=== PATIENT | female | born 1950 | race Caucasian/White ===

== ENCOUNTER → 2016-09-02 | Outpatient (CLI) | payer OTHER ==
[~2016-09-02] MED LIST: ACETAMINOPHEN-1 EAC2; AMARYL1 MG; AMARYL2 MG PO; AMITRIPTYLINE H10 M1; AMITRIPTYLINE H50 M4 PO; AMLODIPINE BESYL5 MG PO; ASPIRIN81 M2 PO; ATORVASTATIN CA40 MG PO; CELEXA20 MG PO; CLOPIDOGREL75 MG PO; FLEXERIL PO; GABAPENTIN100 MG PO; GLUCOPHAGE1000 MG PO; GLUCOPHAGE500 MG PO; HYDROCHLOROTH12.5 M2 PO; JANUVIA100 MG PO; LOSARTAN POTAS100 MG PO; NAPROSYN500 MG PO; NEURONTIN600 MG PO; TRAMADOL 50 MG50 MG PO; ZANAFLEX4 M1 PO
== END ==
LOC: LABMALL 10:02
DX: Z00.00 Encounter for general adult medical examination without abnormal findings (principal); Z85.43 Personal history of malignant neoplasm of ovary

== ENCOUNTER → 2016-09-12 | Outpatient (CLI) | payer OTHER | LOC: RAD 10:06 | DX: M79.671 Pain in right foot (principal) ==

== ENCOUNTER 2016-12-22 22:39 | Emergency (ER) | payer OTHER ==
[~2016-12-22] VITALS: Ht 165.1 cm; Wt 58.1 kg
[2016-12-22] MEDS ORDERED: AMITRIPTYLINE H50 M3 (22:49)
[2016-12-22 23:12] LABS: ABSOLUTE NEUTROPHILS 6.8 thou/uL (1.4-8.2); BASOPHILS 1.5 % (0.0-2.0); EOSINOPHILS 1.9 % (0.0-3.0); HEMOGLOBIN 13.5 gm/dL (12.0-15.0); LYMPHOCYTES 26.8 % (24.0-44.0); MCH 30.3 pg (26.0-34.0); MCHC 34.5 g/dL (28.0-37.0); MCV 87.8 fL (80.0-100.0); MONOCYTES 8.1 % (1.0-8.0); PLATELET COUNT 333 thou/uL (150-400); POLYS 61.7 % (36.0-66.0); RBC 4.45 mil/uL (4.20-5.00); RDW 13.5 % (10.5-14.5); WBC 11.1 thou/uL (4.0-11.0)
[2016-12-22 23:16] LABS: MANUAL DIFF NO
[2016-12-22 23:30] LABS: URINE BILIRUBIN NEGATIVE (Negative); URINE BLOOD NEGATIVE (Negative); URINE COLOR YELLOW; URINE GLUCOSE-RANDOM* NEGATIVE (Negative); URINE KETONES NEGATIVE (Negative); URINE NITRITE NEGATIVE (Negative); URINE PROTEIN (DIPSTICK) NEGATIVE (Negative); URINE SPECIFIC GRAVITY <= 1.005 (1.003-1.035); URINE UROBILINOGEN 0.2 E.U./dl (0.2-1.0)
[2016-12-22 23:57] LABS: CALCIUM 8.8 mg/dL (8.5-10.1); CREATININE 0.6 mg/dL (0.6-1.0); POTASSIUM 3.5 mmol/L (3.5-5.1)
[2016-12-22] MEDS ORDERED: ACETAMINOPHEN-1 EAC1 PO (23:57)
== END 2016-12-23 00:45 | disposition home or self-care (01) ==
LOC: ER 22:39
PROVIDERS: Nurse Practitioner
DX: R10.9 Unspecified abdominal pain (principal); I10 Essential (primary) hypertension; F32.9 Major depressive disorder, single episode, unspecified; E78.00 Pure hypercholesterolemia, unspecified; E11.9 Type 2 diabetes mellitus without complications; F17.210 Nicotine dependence, cigarettes, uncomplicated; Z90.710 Acquired absence of both cervix and uterus; Z86.73 Personal history of transient ischemic attack (TIA), and cerebral infarction without residual deficits; Z98.890 Other specified postprocedural states; Z85.43 Personal history of malignant neoplasm of ovary; Z88.5 Allergy status to narcotic agent

== ENCOUNTER 2017-03-25 18:37 | Emergency (ER) | payer OTHER ==
[~2017-03-25] VITALS: Ht 160 cm; Wt 58.5 kg
[~2017-03-25 18:37] MED LIST changes: +ACETAMINOPHEN-1 EAC1 PO; +AMITRIPTYLINE H50 M3; +MOBIC15 MG PO; +ULTRAM 50MG TAB50 MG PO
[2017-03-25] MEDS ORDERED: IBUPROFEN 800800 M1 PO (19:54)
[2017-03-25 20:19] VITALS: BP 128/82
== END 2017-03-25 20:20 | disposition home or self-care (01) ==
LOC: ER 18:37
DX: S53.491A Other sprain of right elbow, initial encounter (principal); S80.02XA Contusion of left knee, initial encounter; I10 Essential (primary) hypertension; E78.00 Pure hypercholesterolemia, unspecified; F32.9 Major depressive disorder, single episode, unspecified; E11.9 Type 2 diabetes mellitus without complications; F17.210 Nicotine dependence, cigarettes, uncomplicated; Z88.5 Allergy status to narcotic agent; Z90.710 Acquired absence of both cervix and uterus; Z86.73 Personal history of transient ischemic attack (TIA), and cerebral infarction without residual deficits; Z85.43 Personal history of malignant neoplasm of ovary; Z98.890 Other specified postprocedural states; Z90.89 Acquired absence of other organs; W01.0XXA Fall on same level from slipping, tripping and stumbling without subsequent striking against object, initial encounter; Y93.89 Activity, other specified; Y92.89 Other specified places as the place of occurrence of the external cause; Y99.8 Other external cause status

== ENCOUNTER → 2017-05-23 | Outpatient (CLI) | payer OTHER ==
[~2017-05-23] MED LIST changes: +AUGMENTIN 500-1 EACH PO; +IBUPROFEN 800800 M1 PO; +PLAVIX 75 MG TA75 M1 PO
== END ==
LOC: RAD 10:38
DX: M79.672 Pain in left foot (principal); R10.2 Pelvic and perineal pain; Z85.43 Personal history of malignant neoplasm of ovary

== ENCOUNTER → 2017-08-02 | Outpatient (CLI) | payer OTHER ==
[~2017-08-02] MED LIST changes: -AUGMENTIN 500-1 EACH PO; -PLAVIX 75 MG TA75 M1 PO
[2017-08-02 15:30] LABS: CREATININE 0.8 mg/dL (0.6-1.0)
== END ==
LOC: CAT 15:01
PROVIDERS: Nurse Practitioner
DX: K57.30 Diverticulosis of large intestine without perforation or abscess without bleeding (principal); J98.4 Other disorders of lung; E27.8 Other specified disorders of adrenal gland; N28.1 Cyst of kidney, acquired; I10 Essential (primary) hypertension; E88.89 Other specified metabolic disorders

== ENCOUNTER 2017-10-29 22:06 | Emergency (ER) | payer OTHER ==
[~2017-10-29] VITALS: Ht 165.1 cm; Wt 58.1 kg
[2017-10-29] MEDS ORDERED: PLAVIX 75 MG TA75 M1 PO (22:20)
[2017-10-29] MEDS ORDERED: AUGMENTIN 500-1 EACH PO (22:58)
[2017-10-29] MEDS ORDERED: ACETAMINOPHEN-1 EAC1 PO (22:58)
== END 2017-10-29 23:50 | disposition home or self-care (01) ==
LOC: ER 22:06
DX: S61.551A Open bite of right wrist, initial encounter (principal); L08.9 Local infection of the skin and subcutaneous tissue, unspecified; I10 Essential (primary) hypertension; F32.9 Major depressive disorder, single episode, unspecified; E78.00 Pure hypercholesterolemia, unspecified; E11.9 Type 2 diabetes mellitus without complications; Z85.43 Personal history of malignant neoplasm of ovary; Z98.890 Other specified postprocedural states; F17.210 Nicotine dependence, cigarettes, uncomplicated; Z88.1 Allergy status to other antibiotic agents; Z88.5 Allergy status to narcotic agent; W55.01XA Bitten by cat, initial encounter; Y93.89 Activity, other specified; Y92.89 Other specified places as the place of occurrence of the external cause; Y99.8 Other external cause status

== ENCOUNTER 2018-09-15 16:06 | Emergency (ER) | payer OTHER ==
[~2018-09-15] VITALS: Ht 162.6 cm; Wt 62.6 kg
[~2018-09-15 16:06] MED LIST changes: +AUGMENTIN 500-1 EACH PO; +PLAVIX 75 MG TA75 M1 PO
[2018-09-15] MEDS ORDERED: IBUPROFEN 600600 M1 PO (17:02)
[2018-09-15] MEDS ORDERED: ACETAMINOPHEN-1 EAC1 PO (17:02)
[2018-09-15 17:54] VITALS: BP 155/81
== END 2018-09-15 17:55 | disposition home or self-care (01) ==
LOC: ER 16:06
DX: S82.831A Other fracture of upper and lower end of right fibula, initial encounter for closed fracture (principal); F17.210 Nicotine dependence, cigarettes, uncomplicated; I10 Essential (primary) hypertension; F32.9 Major depressive disorder, single episode, unspecified; E78.00 Pure hypercholesterolemia, unspecified; E11.9 Type 2 diabetes mellitus without complications; Z90.710 Acquired absence of both cervix and uterus; Z88.6 Allergy status to analgesic agent; Z88.8 Allergy status to other drugs, medicaments and biological substances; Z85.41 Personal history of malignant neoplasm of cervix uteri; Z98.890 Other specified postprocedural states; Z90.89 Acquired absence of other organs; Z86.73 Personal history of transient ischemic attack (TIA), and cerebral infarction without residual deficits; W18.40XA Slipping, tripping and stumbling without falling, unspecified, initial encounter; Y93.89 Activity, other specified; Y92.481 Parking lot as the place of occurrence of the external cause; Y99.8 Other external cause status

== ENCOUNTER 2018-11-02 11:13 | Emergency (ER) | payer OTHER ==
[~2018-11-02] VITALS: Ht 165.1 cm; Wt 56.7 kg
[~2018-11-02 11:13] MED LIST changes: +IBUPROFEN 600600 M1 PO
[2018-11-02 11:24] VITALS: BP 146/74
[2018-11-02] MEDS ORDERED: MOBIC7.5 MG PO (12:43)
== END 2018-11-02 12:45 | disposition home or self-care (01) ==
LOC: ER 11:13
DX: S93.401A Sprain of unspecified ligament of right ankle, initial encounter (principal); I10 Essential (primary) hypertension; E78.00 Pure hypercholesterolemia, unspecified; E11.9 Type 2 diabetes mellitus without complications; F32.9 Major depressive disorder, single episode, unspecified; F17.210 Nicotine dependence, cigarettes, uncomplicated; Z90.710 Acquired absence of both cervix and uterus; Z90.89 Acquired absence of other organs; Z86.73 Personal history of transient ischemic attack (TIA), and cerebral infarction without residual deficits; Z85.43 Personal history of malignant neoplasm of ovary; Z98.890 Other specified postprocedural states; Z88.6 Allergy status to analgesic agent; Z88.5 Allergy status to narcotic agent; X58.XXXA Exposure to other specified factors, initial encounter; Y92.89 Other specified places as the place of occurrence of the external cause; Y93.89 Activity, other specified; Y99.8 Other external cause status

== ENCOUNTER → 2019-03-07 | Outpatient (CLI) | payer OTHER ==
[~2019-03-07] MED LIST changes: +MOBIC7.5 MG PO
== END ==
LOC: RAD 12:31
DX: R07.81 Pleurodynia (principal); R53.83 Other fatigue

== ENCOUNTER 2019-05-10 17:15 | Emergency (ER) | payer OTHER ==
[~2019-05-10] VITALS: Ht 165.1 cm; Wt 56.7 kg
[2019-05-10 17:16] VITALS: BP 197/98
[2019-05-10] MEDS ORDERED: MUCINEX1200 MG PO (18:12)
[2019-05-10] MEDS ORDERED: ALBUTEROL2.5 MG/31 INH (18:12)
[2019-05-10] MEDS ORDERED: PREDNISONE 20 M20 MG PO (18:12)
[2019-05-10] MEDS ORDERED: TESSALON PERLE100 MG PO (18:12)
== END 2019-05-10 18:19 | disposition home or self-care (01) ==
LOC: ER 17:15
DX: J40 Bronchitis, not specified as acute or chronic (principal); I10 Essential (primary) hypertension; F32.9 Major depressive disorder, single episode, unspecified; E78.00 Pure hypercholesterolemia, unspecified; E11.9 Type 2 diabetes mellitus without complications; F17.210 Nicotine dependence, cigarettes, uncomplicated; Z90.710 Acquired absence of both cervix and uterus; Z86.73 Personal history of transient ischemic attack (TIA), and cerebral infarction without residual deficits; Z85.43 Personal history of malignant neoplasm of ovary; Z88.6 Allergy status to analgesic agent; Z88.5 Allergy status to narcotic agent

== ENCOUNTER → 2019-07-31 | Outpatient (CLI) | payer OTHER ==
[~2019-07-31] MED LIST changes: +ALBUTEROL2.5 MG/31 INH; +MUCINEX1200 MG PO; +PREDNISONE 20 M20 MG PO; +TESSALON PERLE100 MG PO
== END ==
LOC: RAD 13:22
DX: M19.071 Primary osteoarthritis, right ankle and foot (principal); M77.31 Calcaneal spur, right foot

== ENCOUNTER → 2019-09-03 | Outpatient (CLI) | payer OTHER ==
[~2019-09-03] MED LIST changes: +BENICAR40 MG PO; +NORVASC5 MG PO
== END ==
LOC: SJCVCIMAG 09:24
PROVIDERS: ATTEND Internal Medicine Cardiovascular Disease
DX: R00.1 Bradycardia, unspecified (principal); E04.2 Nontoxic multinodular goiter; I10 Essential (primary) hypertension; E78.5 Hyperlipidemia, unspecified; E11.9 Type 2 diabetes mellitus without complications; E78.00 Pure hypercholesterolemia, unspecified; F17.210 Nicotine dependence, cigarettes, uncomplicated; G45.9 Transient cerebral ischemic attack, unspecified; M16.0 Bilateral primary osteoarthritis of hip; Z79.4 Long term (current) use of insulin; Z79.899 Other long term (current) drug therapy; Z79.84 Long term (current) use of oral hypoglycemic drugs; Z82.49 Family history of ischemic heart disease and other diseases of the circulatory system; Z88.8 Allergy status to other drugs, medicaments and biological substances

== ENCOUNTER 2019-09-12 06:48 | Observation (INO) | payer OTHER ==
[~2019-09-12] VITALS: Ht 165.1 cm; Wt 55.0 kg
[2019-09-12] VITALS (18 sets, daily range): BP systolic 120–193; BP diastolic 33–127
[~2019-09-12 06:48] MED LIST changes: -BENICAR40 MG PO; -NORVASC5 MG PO
--- NOTE | 2019-09-12 11:24 | CATHLAB ---
[facility] [place] [address] INVASIVE PROCEDURE REPORT Name: MONIKA CHAN Room #: 210-P [facility] M.R.#: [id number] Admission: 09/12/19 Attend Phys: Varun Ross MD Discharge: Date of : 54 Report #: [id number] THIS REPORT FOR: cc: Cisco Hooker James A. DO Park, Jin S. MD ~ APPROVED REPORT Study performed: 09/12/2019 08:08:37 Patient Details Patient Status: Out-Patient Room #: The patient is a 68 year-old female Event Personnel Varun Ross Match Maker, Alanna Torres RN RN, Santosh Bhardwaj RTR Trey Kramer Sherra RTAdriel Monitor Procedures Performed Art Access - R femoral artery* Left Heart Cath w/or w/o Coronaries [id number] [facility] w/wo Plasty Single CIRC 684398 Hemostasis w/ Mynx 55060 Initial Mod Sed Same Phys/QHP Gr5y 476941 38104 Mod Sed Same Phys/QHP Ea 245847 Indication Dyspnea, Positive stress test Risk Factors Hypercholesterolemia, Hypertension, Diabetes Tobacco History () Procedure Narrative The Right Groin^ was infiltrated with 1% Lidocaine subcutaneous anesthesia. A PINNACLE 4FR Sheath #[id number] sheath was inserted into the RFA^. Coronary angiography was performed using coronary diagnostic catheters. The right coronary system was accessed and visualized with a JR4 catheter. The left coronary system was accessed and visualized with a JL4 catheter. The left ventricle was accessed and visualized with a JR4 catheter. Pre-demployment femoral angiogram was performed . Closure device was deployed with a 6 Fr MYNXGRIP 6/7F #[id number]. The patient tolerated the procedure well and there were no complications associated with the procedure. There was no hematoma. [facility] [place] [address] INVASIVE PROCEDURE REPORT Name: MONIKA CHAN Room #: 210-P [facility] IN .R.#: [id number] Admission: 09/12/19 Attend Phys: Varun Ross MD Discharge: Date of : 54 Report #: [id number] Intraoperative Conscious Sedation Sedation start time: 818 Case end Time: 913 Fentanyl 50 mcg Versed 1.5 mg Fluoro Time: 10.50 minutes Dose: DAP 7235.00 cGycm2 2091 mGy Contrast Type and Amount: Omnipaque 195 ml Coronary Angiography The patient's coronary anatomy is left dominant. Diagnostic Cath Left Main The left main artery is a large-caliber vessel, with no flow-limiting lesions. LAD The LAD is a moderate-sized caliber vessel, traversing the anterior wall and wrapping around the apex. There is minimal plaquing in the midsegment. Diagonal 1 There is mild to moderate diffuse disease in the proximal segment, 30 to 40%. Circumflex The left circumflex artery is a dominant vessel. There is a severe stenosis in the proximal segment, 80%. OM1 This is a moderate-sized caliber vessel, divides into 2 branches. There is mild disease at the ostium, 20%. OM2 This is a small caliber vessel, with no flow-limiting lesions. L PDA This is a moderate-sized caliber vessel, with no flow-limiting lesions. Right Coronary This is a small, nondominant vessel with minimal disease. Left Ventriculography Left Ventriculography was not performed. Ejection Fraction was 55-60% based off patient's Nuclear Cardiac Stress Test. An LVEDP was measured and there is no gradient across the outflow tract. Hemodynamics The aortic pressure is 164/65 mmHg with a mean of 94 mmHg. The left ventricular pressure is 178/15 mmHg with a mean of mmHg. The left ventricular end diastolic pressure is 22 mmHg. PCI Technique Lesion Percutaneous coronary intervention was performed on the proximal circumflex artery segment. The lesion stenosis prior to intervention was 80% with CIARA 3 flow. A VISTA 6FR XB 3.5 #248127 Guide Catheter was used to engage the ostium. A Luge Wire .014 x 182CM #[id number] Interventional Guidewire was used to cross the lesion. [facility] [address] [place] [address] INVASIVE PROCEDURE REPORT Name: MONIKA CHAN Room #: 210-P [facility] IN .R.#: [id number] Admission: 09/12/19 Attend Phys: Varun Ross MD Discharge: Date of : 54 Report #: [id number] BALLOON DILATION A Balloon catheter Euphora RX 2.25 x 10 #[id number] was inserted and inflated up to 8.00atm for 8seconds. Additional Inflation: 8.00atm for 6seconds. Additional Inflation: 8.00atm for 6seconds. STENT DEPLOYMENT A drug-eluting stent RESOLUTE FAIZAN RX 2.5 X 12 #[id number] was inserted and inflated up to 12.00atm for 16seconds. POST STENT DEPLOYMENT BALLOON DILATION A Balloon catheter TREK NC RX 2.5 X 8 #[id number] was inserted and inflated up to 16.00atm for 18seconds. Final angiography reveals 0 % stenosis with CIARA 3 flow. Conclusion 1. Successful insertion of a drug-eluting stent into the proximal segment of a dominant left circumflex artery. 2. There is mild to moderate disease in the first diagonal artery and OM1. 3. Normal LV systolic function. 4. Recommend dual antiplatelet therapy and aggressive risk factor management. <ELECTRONICALLY SIGNED> By: Varun Ross MD 09/12/19 1123 22 22 Varun Ross MD /INF
--- NOTE | 2019-09-12 20:20 | NUR ---
ASSUMMED PT CARE AT APPROXIMATELY 1000. PT A&O X4. ASSESSMENT CHARTED. FALL PRECAUTIONS IN PLACE. PT DENIES HAVING CHEST PAIN. PT DENIES HAVING SOB. PT STATED SHE HAD A HEADACHE. PT RECEIVED ANALGESICS. PT STATED ANALGESICS HELPED RELIEVE PAIN. BEDREST COMPLETE. PT AMBULATES STEADY/INDEPENDENT. R GROIN C/D/I, NO HEMATOMA. INFORMED DR. FERRELL OF PT'S ELEVATED BP. RECEIVED NEW ORDERS. NEW ORDERS IMPLEMENTED. PT BP DECREASED. INFORMED DR. MEDELLIN OF PT'S BP AND HIGH BLOOD SUGAR. NEW ORDERS RECIEVED. INFORMED FENDER FINISHER RN OF NEW ORDERS. RN STATED UNDERSTANDING AND DENIED HAVING FURTHER QUESTIONS. VITAL SIGNS STABLE. BLOOD SUGAR STABLE. PT COMFORTABLE. PT DENIES HAVING FURTHER CONCERNS.
--- NOTE | 2019-09-13 00:21 | NUR ---
PT ALERT AND ORIENTED, S/P CARDIAC CATH. OFF BEDREST BEFORE NOC SHIFT. WALKING AROUND. VSS. C/O SORENESS IN THE RIGHT GROING, OTHERWISE C/D/I. INDEPENDENT WITH ADLS. NO OTHER CONCERNS AT THIS TIME. NO SOB, CHEST PAIN, OR NAUSEA. ANTICIPATE TO DC TOMORROW. WILL FOLLOW POC
[2019-09-13 04:53] VITALS: BP 149/56
[2019-09-13 05:27] LABS: HEMATOCRIT 40.2 % (37.0-47.0); HEMOGLOBIN 13.4 gm/dL (12.0-15.0); MCH 30.8 pg (26.0-34.0); MCHC 33.4 g/dL (28.0-37.0); MCV 92.2 fL (80.0-100.0); RBC 4.36 mil/uL (4.20-5.00); RDW 13.8 % (10.5-14.5); WBC 10.6 thou/uL (4.0-11.0)
[2019-09-13 05:47] LABS: CALCIUM 8.6 mg/dL (8.5-10.1); CREATININE 0.8 mg/dL (0.6-1.0); POTASSIUM 3.9 mmol/L (3.5-5.1); TOTAL BILIRUBIN 0.1 mg/dL (0.2-1.0); TOTAL PROTEIN 5.9 g/dL (6.4-8.2)
[2019-09-13 07:14] VITALS: BP 162/79
--- NOTE | 2019-09-13 07:48 | EKG ---
[facility] [place] [address] ELECTROCARDIOGRAM REPORT Name: MONIKA CHAN Room #: 210- [facility] M.R.#: [id number] Admission: 09/12/19 Attend Phys: Varun Ross MD Discharge: Date of : 54 Report #: [id number] THIS REPORT FOR: cc: Cisco Hooker James A. DO Lundgren, Craig H. MD [facility] ~ THIS REPORT FOR: //name// [facility] Test Date: 2019-09-12 Test Time: 10:01:17 Pat Name: MONIKA CHAN Department: Room: 210 Gender: F Fruit Culler: Rodolfo ULRICH : 1950 Requested By: Varun Ross Order Number: [id number] MD: Jeyson Marmolejo Measurements Intervals [place] Rate: 68 P: 58 SC: 170 QRS: 24 QRSD: 84 T: 47 QT: 437 QTc: 465 Interpretive Statements Sinus rhythm Nonspecific ST segment abnormality Compared to ECG 02/26/2016 20:01:19 No significant changes Electronically Signed On 09-13-2019 7:47:10 CDT by Jeyson Marmolejo [email or web address] <ELECTRONICALLY SIGNED> By: Jeyson Marmolejo MD, [facility] 09/13/19 0747 1001 1001 Jeyson Marmolejo MD, [facility] /EPI
[2019-09-13 07:50] VITALS: BP 162/79
[2019-09-13] MEDS ORDERED: NORVASC5 MG PO (08:05)
[2019-09-13] MEDS ORDERED: BENICAR40 MG PO (08:05)
[2019-09-13 09:50] VITALS: BP 162/79
--- NOTE | 2019-09-13 10:46 | NUR ---
PT CARE ASSUMED AT 0700, PT ALERT AND ORENTED X4, DENIES CHEST PAIN, NAUSEA AND VOMITING. PT IS ON ROOM AIR AND NO SIGNS OF DISTRESS NOTED. ASSESSMENT AND VITALS COMPLETED. CALL LIGHT AND TABLE WITHIN REACH. 1000 DISCHARGE ORDERS IN, NEW MEDICATION EXPLAIN AND EDUCATION COMPLETED WITH PAPER WORK GIVEN TO PT. DISCHARGE EDUCTION AND INSTRUCTION GIVEN TO PT.
[2019-09-13 11:16] VITALS: BP 146/69
--- NOTE | 2019-09-13 12:19 | NUR ---
1200 PT DISCHARGE, TAKEN DOWN TO CAR VIA WHEELCHAIR. ALL PT BELONGINGS WITH PT.
--- NOTE | 2019-09-14 11:47 | EKG ---
[facility] [place] [address] ELECTROCARDIOGRAM REPORT Name: MONIKA CHAN Room #: 210-[facility] M.R.#: [id number] Admission: 09/12/19 Attend Phys: Varun Ross MD Discharge: 09/13/19 Date of : 54 Report #: [id number] THIS REPORT FOR: cc: Cisco Hooker James A. DO Couchonnal, Luis F. MD ~ THIS REPORT FOR: //name// [facility] Test Date: 2019-09-13 Test Time: 07:31:24 Pat Name: MONIKA CHAN Department: Room: 210 Gender: F Planishing Hammer Operator: Adriel HERNANDEZ : 1950 Requested By: Varun Ross Order Number: [id number] MD: Albert Kong Measurements Intervals [place] Rate: 57 P: 58 DE: 160 QRS: 27 QRSD: 82 T: 56 QT: 470 QTc: 458 Interpretive Statements Sinus rhythm Consider left atrial enlargement Probable anteroseptal infarct, old Compared to ECG 02/26/2016 20:01:19 Myocardial infarct finding now present Electronically Signed On 09-14-2019 11:46:56 CDT by Albert Kong [email or web address] <ELECTRONICALLY SIGNED> By: Albert Kong MD 09/14/19 1146 0 0 Albert Kong MD /EPI
== END 2019-09-13 12:02 | disposition home or self-care (01) ==
LOC: CATH 06:48 → 2N 09:54 → CATH 11:38 → 2N 09-13 12:02
PROVIDERS: ADMIT Internal Medicine Cardiovascular Disease; ATTEND Internal Medicine Cardiovascular Disease
DX: I25.10 Atherosclerotic heart disease of native coronary artery without angina pectoris (principal); I10 Essential (primary) hypertension; E78.5 Hyperlipidemia, unspecified; E11.9 Type 2 diabetes mellitus without complications; Z86.73 Personal history of transient ischemic attack (TIA), and cerebral infarction without residual deficits; F17.200 Nicotine dependence, unspecified, uncomplicated

== ENCOUNTER → 2019-09-23 | Outpatient (CLI) | payer OTHER ==
[~2019-09-23] MED LIST changes: +BENICAR40 MG PO; +NORVASC5 MG PO
[2019-09-23 14:18] LABS: HEMATOCRIT 41.7 % (37.0-47.0); HEMOGLOBIN 14.2 gm/dL (12.0-15.0); MCV 91.2 fL (80.0-100.0); RBC 4.58 mil/uL (4.20-5.00); RDW 13.6 % (10.5-14.5); WBC 12.6 thou/uL (4.0-11.0)
[2019-09-23 14:56] LABS: ALBUMIN 3.7 g/dL (3.4-5.0); CALCIUM 9.8 mg/dL (8.5-10.1); POTASSIUM 4.2 mmol/L (3.5-5.1); TOTAL BILIRUBIN 0.3 mg/dL (0.2-1.0); TOTAL PROTEIN 6.7 g/dL (6.4-8.2)
== END ==
LOC: LABMALL 13:27
PROVIDERS: ATTEND Family Medicine
DX: Z08 Encounter for follow-up examination after completed treatment for malignant neoplasm (principal); C56.9 Malignant neoplasm of unspecified ovary; Z72.0 Tobacco use

== ENCOUNTER → 2019-10-08 | Outpatient (CLI) | payer OTHER | LOC: MRI 09:47 | PROVIDERS: ATTEND Orthopaedic Surgery Sports Medicine | DX: M76.9 Unspecified enthesopathy, lower limb, excluding foot (principal); M79.89 Other specified soft tissue disorders ==

== ENCOUNTER 2020-02-02 06:13 | Emergency (ER) | payer OTHER ==
[~2020-02-02] VITALS: Ht 152.4 cm; Wt 54.4 kg
[2020-02-02 08:09] VITALS: BP 174/75
== END 2020-02-02 08:10 | disposition home or self-care (01) ==
LOC: ER 06:13
DX: S63.501A Unspecified sprain of right wrist, initial encounter (principal); S09.90XA Unspecified injury of head, initial encounter; I10 Essential (primary) hypertension; E11.9 Type 2 diabetes mellitus without complications; E78.5 Hyperlipidemia, unspecified; F17.210 Nicotine dependence, cigarettes, uncomplicated; Z90.710 Acquired absence of both cervix and uterus; Z90.89 Acquired absence of other organs; Z79.899 Other long term (current) drug therapy; Z79.01 Long term (current) use of anticoagulants; Z88.5 Allergy status to narcotic agent; Y04.0XXA Assault by unarmed brawl or fight, initial encounter; Y93.89 Activity, other specified; Y92.89 Other specified places as the place of occurrence of the external cause; Y99.8 Other external cause status

== ENCOUNTER → 2020-02-27 | Outpatient (CLI) | payer OTHER | LOC: LAB 14:22 | PROVIDERS: ATTEND Family Medicine | DX: R05 Cough (principal); U07.1 COVID-19; R06.02 Shortness of breath; R09.89 Other specified symptoms and signs involving the circulatory and respiratory systems ==

== ENCOUNTER → 2020-03-30 | Outpatient (CLI) | payer OTHER | LOC: LAB 12:27 | DX: Z08 Encounter for follow-up examination after completed treatment for malignant neoplasm (principal); C56.9 Malignant neoplasm of unspecified ovary; Z72.0 Tobacco use ==

== ENCOUNTER → 2020-04-02 | Outpatient (CLI) | payer OTHER ==
[2020-04-02 12:30] LABS: ABSOLUTE NEUTROPHILS 5.7 thou/uL (1.4-8.2); EOSINOPHILS 1.9 % (0.0-3.0); HEMATOCRIT 40.8 % (37.0-47.0); HEMOGLOBIN 13.7 gm/dL (12.0-15.0); LYMPHOCYTES 21.3 % (24.0-44.0); MCH 30.5 pg (26.0-34.0); MCHC 33.7 g/dL (28.0-37.0); MCV 90.5 fL (80.0-100.0); MONOCYTES 5.9 % (1.0-8.0); PLATELET COUNT 330 thou/uL (150-400); POLYS 69.9 % (36.0-66.0); WBC 8.2 thou/uL (4.0-11.0)
[2020-04-02 12:54] LABS: ALBUMIN 3.5 g/dL (3.4-5.0); BUN 9 mg/dL (7-18); CALCIUM 9.3 mg/dL (8.5-10.1); CHOLESTEROL 184 mg/dL (<200); CO2 26 mmol/L (21-32); CREATININE 0.8 mg/dL (0.6-1.0); GLUCOSE 178 mg/dL (74-106); HDL CHOLESTEROL 76 mg/dL (>40); LDL CHOLESTEROL 83 mg/dL (<100); SGOT 16 U/L (15-37); SGPT 34 U/L (30-65); TC:HDL 2.4 Ratio (Not establshd); TOTAL BILIRUBIN 0.3 mg/dL (0.2-1.0); TOTAL PROTEIN 6.8 g/dL (6.4-8.2); TRIGLYCERIDE 125 mg/dL (<150); VLDL 25 mg/dL (<40)
[2020-04-02 13:00] LABS: ANION GAP 9 mmol/L (7-16); CHLORIDE 105 mmol/L (98-107); POTASSIUM 4.1 mmol/L (3.5-5.1); SODIUM 140 mmol/L (136-145)
[2020-04-03 00:06] LABS: GLYCOHEMOGLOBIN (HGB A1C) 7.2 % (4.8-5.6)
== END ==
LOC: LAB 11:27
PROVIDERS: ATTEND Family Medicine
DX: Z00.00 Encounter for general adult medical examination without abnormal findings (principal)

== ENCOUNTER → 2020-04-13 | Outpatient (CLI) | payer OTHER | LOC: SJCVCIMAG 04-08 11:28 | PROVIDERS: ATTEND Internal Medicine Cardiovascular Disease | DX: I25.10 Atherosclerotic heart disease of native coronary artery without angina pectoris (principal); I10 Essential (primary) hypertension; E78.5 Hyperlipidemia, unspecified; E11.9 Type 2 diabetes mellitus without complications; F17.200 Nicotine dependence, unspecified, uncomplicated ==

== ENCOUNTER → 2020-04-27 | Outpatient (CLI) | payer OTHER | LOC: MRI 12:09 | PROVIDERS: ATTEND Family Medicine | DX: I67.82 Cerebral ischemia (principal); R51.9 Headache, unspecified; M25.531 Pain in right wrist ==

== ENCOUNTER → 2020-05-08 | Outpatient (CLI) | payer OTHER | LOC: LAB 08:01 | PROVIDERS: ATTEND Family Medicine | DX: R06.02 Shortness of breath (principal); R05 Cough; Z20.822 Contact with and (suspected) exposure to COVID-19 ==

== ENCOUNTER 2020-06-18 09:20 | Emergency (ER) | payer OTHER ==
[~2020-06-18] VITALS: Ht 165.1 cm; Wt 57.6 kg
[2020-06-18] MEDS ORDERED: APAP W/CODEINE1 TA2 PO (11:45)
[2020-06-18 11:59] VITALS: BP 141/73
== END 2020-06-18 12:01 | disposition home or self-care (01) ==
LOC: ER 09:20
DX: S97.82XA Crushing injury of left foot, initial encounter (principal); I10 Essential (primary) hypertension; E11.9 Type 2 diabetes mellitus without complications; F17.210 Nicotine dependence, cigarettes, uncomplicated; E78.5 Hyperlipidemia, unspecified; Z90.710 Acquired absence of both cervix and uterus; Z90.89 Acquired absence of other organs; Z79.899 Other long term (current) drug therapy; Z79.01 Long term (current) use of anticoagulants; Z88.5 Allergy status to narcotic agent; W20.8XXA Other cause of strike by thrown, projected or falling object, initial encounter; Y93.89 Activity, other specified; Y92.89 Other specified places as the place of occurrence of the external cause; Y99.0 Civilian activity done for income or pay

== ENCOUNTER 2020-08-24 13:57 | Emergency (ER) | payer OTHER ==
[~2020-08-24] VITALS: Ht 165.1 cm; Wt 56.7 kg
[~2020-08-24 13:57] MED LIST changes: +APAP W/CODEINE1 TA2 PO
[2020-08-24 14:17] VITALS: BP 132/84
== END 2020-08-24 15:54 | disposition home or self-care (01) ==
LOC: ER 13:57
DX: J06.9 Acute upper respiratory infection, unspecified (principal); Z20.822 Contact with and (suspected) exposure to COVID-19; R19.7 Diarrhea, unspecified; I10 Essential (primary) hypertension; E11.9 Type 2 diabetes mellitus without complications; F32.9 Major depressive disorder, single episode, unspecified; E78.00 Pure hypercholesterolemia, unspecified; F17.210 Nicotine dependence, cigarettes, uncomplicated; Z86.73 Personal history of transient ischemic attack (TIA), and cerebral infarction without residual deficits; Z98.890 Other specified postprocedural states; Z90.89 Acquired absence of other organs; Z85.43 Personal history of malignant neoplasm of ovary; Z79.899 Other long term (current) drug therapy; Z88.6 Allergy status to analgesic agent

== ENCOUNTER 2020-10-16 12:05 | Emergency (ER) | payer OTHER ==
[~2020-10-16] VITALS: Ht 165.1 cm; Wt 58.5 kg
[2020-10-16 13:39] LABS: HEMATOCRIT 39.7 % (37.0-47.0); HEMOGLOBIN 13.6 gm/dL (12.0-15.0); MCH 30.6 pg (26.0-34.0); MCHC 34.1 g/dL (28.0-37.0); MCV 89.7 fL (80.0-100.0); RBC 4.43 mil/uL (4.20-5.00); RDW 13.6 % (10.5-14.5); WBC 7.6 thou/uL (4.0-11.0)
[2020-10-16 13:45] LABS: ANION GAP 6 mmol/L (7-16); BUN 12 mg/dL (7-18); CALCIUM 9.5 mg/dL (8.5-10.1); CHLORIDE 106 mmol/L (98-107); CO2 29 mmol/L (21-32); GLUCOSE 147 mg/dL (74-106); SODIUM 141 mmol/L (136-145)
[2020-10-16 13:56] LABS: ALBUMIN 3.6 g/dL (3.4-5.0); SGOT 12 U/L (15-37); SGPT 32 U/L (14-59); TOTAL BILIRUBIN 0.2 mg/dL (0.2-1.0); TROPONIN-I <0.06 ng/mL (<0.06)
[2020-10-16] MEDS ORDERED: METHOCARBAMOL500 M2 PO (14:30)
[2020-10-16 14:36] VITALS: BP 155/67
--- NOTE | 2020-10-17 10:42 | EKG ---
[place] [address] [facility] [place] [address] ELECTROCARDIOGRAM REPORT Name: MONIKA CHAN [id number] Admission: 10/16/20 Attend Phys: Discharge: 10/16/20 Date of : 54 Report #: [id number] [facility] ED Test Date: 2020-10-16 Test Time: 13:04:27 Pat Name: MONIKA CHAN Department: Room: Gender: F Soldering Machine Tender: : 1950 Requested By: Juana Becerra Order Number: [id number] MD: Jeyson Marmolejo Measurements Intervals [place] Rate: 61 P: 52 ME: 152 QRS: 15 QRSD: 92 T: 68 QT: 453 QTc: 457 Interpretive Statements Sinus rhythm No significant abnormality Compared to ECG 09/13/2019 07:31:24 Myocardial infarct finding no longer present Electronically Signed On 10-17-2020 10:41:51 CDT by Jeyson Marmolejo [email or web address] <ELECTRONICALLY SIGNED> By: Jeyson Marmolejo MD, [facility] 10/17/20 1041 1304 1304 Jeyson Marmolejo MD, FACC /EPI
== END 2020-10-16 14:30 | disposition home or self-care (01) ==
LOC: ER 12:05
PROVIDERS: Nurse Practitioner Family
DX: S29.011A Strain of muscle and tendon of front wall of thorax, initial encounter (principal); I10 Essential (primary) hypertension; E78.00 Pure hypercholesterolemia, unspecified; E11.9 Type 2 diabetes mellitus without complications; F17.210 Nicotine dependence, cigarettes, uncomplicated; Z88.5 Allergy status to narcotic agent; Z98.890 Other specified postprocedural states; Z86.73 Personal history of transient ischemic attack (TIA), and cerebral infarction without residual deficits; Z90.89 Acquired absence of other organs; Z90.710 Acquired absence of both cervix and uterus; Z85.43 Personal history of malignant neoplasm of ovary; Z86.16 Personal history of COVID-19; X50.0XXA Overexertion from strenuous movement or load, initial encounter; Y93.89 Activity, other specified; Y92.89 Other specified places as the place of occurrence of the external cause; Y99.8 Other external cause status

== ENCOUNTER → 2021-01-14 | Outpatient (CLI) | payer OTHER ==
[~2021-01-14] MED LIST changes: +METHOCARBAMOL500 M2 PO
[2021-01-14 12:29] LABS: ABSOLUTE NEUTROPHILS 7.6 thou/uL (1.4-8.2); BASOPHILS 0.8 % (0.0-2.0); EOSINOPHILS 1.6 % (0.0-3.0); HEMATOCRIT 44.1 % (37.0-47.0); HEMOGLOBIN 15.2 gm/dL (12.0-15.0); LYMPHOCYTES 20.2 % (24.0-44.0); MCH 30.4 pg (26.0-34.0); MCHC 34.4 g/dL (28.0-37.0); MCV 88.6 fL (80.0-100.0); MONOCYTES 5.5 % (1.0-8.0); POLYS 71.9 % (36.0-66.0); RBC 4.98 mil/uL (4.20-5.00); RDW 13.4 % (10.5-14.5); WBC 10.6 thou/uL (4.0-11.0)
[2021-01-14 12:52] LABS: % SATURATION 38 % (20-39); IRON 128 ug/dL (50-170); TIBC 341 ug/dL (250-450)
[2021-01-14 12:57] LABS: ALBUMIN 3.9 g/dL (3.4-5.0); ANION GAP 8 mmol/L (7-16); BUN 12 mg/dL (7-18); CALCIUM 9.5 mg/dL (8.5-10.1); CHLORIDE 104 mmol/L (98-107); CHOLESTEROL 213 mg/dL (<200); CO2 27 mmol/L (21-32); CREATININE 0.9 mg/dL (0.6-1.0); GLUCOSE 174 mg/dL (74-106); HDL CHOLESTEROL 78 mg/dL (>40); LDL CHOLESTEROL 113 mg/dL (<100); POTASSIUM 4.4 mmol/L (3.5-5.1); SGOT 12 U/L (15-37); SGPT 27 U/L (30-65); SODIUM 139 mmol/L (136-145); TC:HDL 2.7 Ratio (Not establshd); TOTAL BILIRUBIN 0.3 mg/dL (0.2-1.0); TOTAL PROTEIN 7.6 g/dL (6.4-8.2); TRIGLYCERIDE 111 mg/dL (<150); VLDL 22 mg/dL (<40)
[2021-01-14 14:03] LABS: PLATELET COUNT 350 thou/uL (150-400)
[2021-01-15 01:06] LABS: GLYCOHEMOGLOBIN (HGB A1C) 8.3 % (4.8-5.6)
== END ==
LOC: LAB 11:51
PROVIDERS: ATTEND Nurse Practitioner
DX: E11.65 Type 2 diabetes mellitus with hyperglycemia (principal); E61.1 Iron deficiency; E53.8 Deficiency of other specified B group vitamins

== ENCOUNTER → 2021-02-25 | Outpatient (CLI) | payer OTHER | LOC: SJCVCIMAG 08:21 | PROVIDERS: ATTEND Internal Medicine Cardiovascular Disease | DX: I08.1 Rheumatic disorders of both mitral and tricuspid valves (principal); I25.10 Atherosclerotic heart disease of native coronary artery without angina pectoris ==

== ENCOUNTER 2021-03-23 20:52 | Emergency (ER) | payer OTHER ==
[~2021-03-23] VITALS: Ht 165.1 cm; Wt 57.6 kg
[2021-03-23 21:34] LABS: URINE BILIRUBIN NEGATIVE (Negative); URINE BLOOD NEGATIVE (Negative); URINE CLARITY CLEAR; URINE COLOR YELLOW; URINE GLUCOSE-RANDOM* NEGATIVE (Negative); URINE KETONES NEGATIVE (Negative); URINE LEUKOCYTES-REFLEX NEGATIVE (Negative); URINE NITRITE-REFLEX NEGATIVE (Negative); URINE PROTEIN (DIPSTICK) NEGATIVE (Negative); URINE UROBILINOGEN 0.2 E.U./dl (0.2-1.0)
[2021-03-23] MEDS ORDERED: ROSUVASTATIN CA40 MG PO (22:07)
[2021-03-23] MEDS ORDERED: GLUCOPHAGE XR750 MG PO (22:09)
[2021-03-23 22:13] LABS: ABSOLUTE NEUTROPHILS 7.6 thou/uL (1.4-8.2); EOSINOPHILS 1.3 % (0.0-3.0); HEMATOCRIT 41.9 % (37.0-47.0); HEMOGLOBIN 14.1 gm/dL (12.0-15.0); LYMPHOCYTES 15.3 % (24.0-44.0); MCH 30.2 pg (26.0-34.0); MCHC 33.7 g/dL (28.0-37.0); MCV 89.7 fL (80.0-100.0); MONOCYTES 5.8 % (1.0-8.0); PLATELET COUNT 358 thou/uL (150-400); POLYS 76.6 % (36.0-66.0); RBC 4.67 mil/uL (4.20-5.00); RDW 13.8 % (10.5-14.5); WBC 9.9 thou/uL (4.0-11.0)
[2021-03-23 22:14] LABS: CALCIUM 9.6 mg/dL (8.5-10.1); CREATININE 0.9 mg/dL (0.6-1.0); POTASSIUM 4.7 mmol/L (3.5-5.1)
[2021-03-23 22:25] LABS: ALBUMIN 3.4 g/dL (3.4-5.0); MAGNESIUM 1.7 mg/dL (1.8-2.4); TOTAL BILIRUBIN 0.2 mg/dL (0.2-1.0); TOTAL PROTEIN 6.8 g/dL (6.4-8.2)
[2021-03-24 03:28] VITALS: BP 158/76
--- NOTE | 2021-03-24 08:23 | EKG ---
[address] [address] ELECTROCARDIOGRAM REPORT Name: MONIKA CHAN Room #: DEP [facility]#: [id number] Admission: 03/23/21 Attend Phys: Discharge: 03/24/21 Date of : 54 Report #: [id number] [facility] ED Test Date: 2021-03-23 Test Time: 21:15:38 Pat Name: MONIKA CHAN Department: Room: Gender: F Podiatric Foot And Ankle Specialist: [facility] : 1950 Requested By: Monika Patel Order Number: [id number] MD: Jayjay Kuo Measurements Intervals [place] Rate: 67 P: 62 IN: 154 QRS: 24 QRSD: 86 T: 69 QT: 405 QTc: 428 Interpretive Statements Sinus rhythm Compared to ECG 10/16/2020 13:04:27 No significant changes Electronically Signed On 03-24-2021 8:23:27 POWERTRAIN CALIBRATION ENGINEER by Jayjay Kuo [email or web address] <ELECTRONICALLY SIGNED> By: Jayjay Kuo MD, [facility] 03/24/21 0823 14 2115 Jayjay Kuo MD, FACC /EPI
== END 2021-03-24 03:19 | disposition home or self-care (01) ==
LOC: ER 20:52
PROVIDERS: Nurse Practitioner Family
DX: R07.89 Other chest pain (principal); Z20.822 Contact with and (suspected) exposure to COVID-19; I10 Essential (primary) hypertension; F32.9 Major depressive disorder, single episode, unspecified; E78.00 Pure hypercholesterolemia, unspecified; E11.9 Type 2 diabetes mellitus without complications; F17.210 Nicotine dependence, cigarettes, uncomplicated; Z90.710 Acquired absence of both cervix and uterus; Z98.890 Other specified postprocedural states; Z90.49 Acquired absence of other specified parts of digestive tract; Z90.89 Acquired absence of other organs; Z86.16 Personal history of COVID-19; Z86.73 Personal history of transient ischemic attack (TIA), and cerebral infarction without residual deficits; Z79.899 Other long term (current) drug therapy; Z79.891 Long term (current) use of opiate analgesic; Z79.1 Long term (current) use of non-steroidal anti-inflammatories (NSAID); Z88.6 Allergy status to analgesic agent; Z88.8 Allergy status to other drugs, medicaments and biological substances

== ENCOUNTER 2021-03-24 17:31 | Emergency (ER) | payer OTHER ==
[~2021-03-24] VITALS: Ht 175.3 cm; Wt 49.9 kg
[~2021-03-24 17:31] MED LIST changes: +GLUCOPHAGE XR750 MG PO; +ROSUVASTATIN CA40 MG PO
[2021-03-24 20:41] LABS: ABSOLUTE NEUTROPHILS 8.9 thou/uL (1.4-8.2); EOSINOPHILS 0.9 % (0.0-3.0); HEMATOCRIT 41.4 % (37.0-47.0); MCH 29.8 pg (26.0-34.0); MCHC 33.8 g/dL (28.0-37.0); MCV 88.3 fL (80.0-100.0); MONOCYTES 3.7 % (1.0-8.0); PLATELET COUNT 334 thou/uL (150-400); POLYS 78.4 % (36.0-66.0); RBC 4.69 mil/uL (4.20-5.00); RDW 13.4 % (10.5-14.5); WBC 11.4 thou/uL (4.0-11.0)
[2021-03-24 20:52] LABS: CALCIUM 9.1 mg/dL (8.5-10.1); CREATININE 0.9 mg/dL (0.6-1.0); POTASSIUM 4.1 mmol/L (3.5-5.1)
[2021-03-24 21:02] LABS: ALBUMIN 3.5 g/dL (3.4-5.0); TOTAL BILIRUBIN 0.3 mg/dL (0.2-1.0); TOTAL PROTEIN 6.7 g/dL (6.4-8.2)
[2021-03-24 21:25] VITALS: BP 169/81
--- NOTE | 2021-03-25 07:44 | EKG ---
[address] [address] ELECTROCARDIOGRAM REPORT Name: MONIKA CHAN Room #: DEP [facility]#: [id number] Admission: 03/24/21 Attend Phys: Discharge: 03/24/21 Date of : 54 Report #: [id number] [facility] ED Test Date: 2021-03-24 Test Time: 17:39:30 Pat Name: MONIKA CHAN Department: Room: Gender: F Production Tech: PEDRO : 1950 Requested By: Juana Becerra Order Number: [id number] MD: Jayjay Kuo Measurements Intervals [place] Rate: 84 P: 62 IN: 155 QRS: 7 QRSD: 83 T: 60 QT: 365 QTc: 432 Interpretive Statements Sinus rhythm Compared to ECG 03/23/2021 21:15:38 No significant changes Electronically Signed On 03-25-2021 7:44:04 ROLLED SEAT TRIMMER by Jayjay Kuo [email or web address] <ELECTRONICALLY SIGNED> By: Jayjay Kuo MD, [facility] 03/25/21 0744 1739 1739 Jayjay Kuo MD, FACC /EPI
== END 2021-03-24 21:48 | disposition home or self-care (01) ==
LOC: ER 17:31
PROVIDERS: Emergency Medicine
DX: R07.89 Other chest pain (principal); I10 Essential (primary) hypertension; F32.9 Major depressive disorder, single episode, unspecified; E78.00 Pure hypercholesterolemia, unspecified; E11.9 Type 2 diabetes mellitus without complications; F17.210 Nicotine dependence, cigarettes, uncomplicated; Z90.710 Acquired absence of both cervix and uterus; Z85.43 Personal history of malignant neoplasm of ovary; Z98.890 Other specified postprocedural states; Z90.89 Acquired absence of other organs; Z86.16 Personal history of COVID-19; Z86.73 Personal history of transient ischemic attack (TIA), and cerebral infarction without residual deficits; Z79.899 Other long term (current) drug therapy; Z79.84 Long term (current) use of oral hypoglycemic drugs; Z79.891 Long term (current) use of opiate analgesic; Z79.1 Long term (current) use of non-steroidal anti-inflammatories (NSAID); Z88.5 Allergy status to narcotic agent; Z88.6 Allergy status to analgesic agent

== ENCOUNTER 2021-04-06 03:28 | Emergency (ER) | payer OTHER ==
[~2021-04-06] VITALS: Ht 167.6 cm; Wt 56.7 kg
[2021-04-06] MEDS ORDERED: APAP W/CODEINE1 TA2 PO ×2 (05:44→06:04)
== END 2021-04-06 06:30 | disposition home or self-care (01) ==
LOC: ER 03:28
DX: M25.562 Pain in left knee (principal); I10 Essential (primary) hypertension; F32.9 Major depressive disorder, single episode, unspecified; E78.00 Pure hypercholesterolemia, unspecified; E11.9 Type 2 diabetes mellitus without complications; F17.210 Nicotine dependence, cigarettes, uncomplicated; Z90.710 Acquired absence of both cervix and uterus; Z90.89 Acquired absence of other organs; Z79.899 Other long term (current) drug therapy; Z88.5 Allergy status to narcotic agent; Z88.6 Allergy status to analgesic agent

== ENCOUNTER → 2021-05-06 | Outpatient (CLI) | payer OTHER | LOC: MRI 12:44 | PROVIDERS: ATTEND Orthopaedic Surgery Sports Medicine | DX: S83.242A Other tear of medial meniscus, current injury, left knee, initial encounter (principal); S80.02XA Contusion of left knee, initial encounter; S83.8X2A Sprain of other specified parts of left knee, initial encounter; X58.XXXA Exposure to other specified factors, initial encounter; Y93.89 Activity, other specified; Y92.89 Other specified places as the place of occurrence of the external cause; Y99.8 Other external cause status ==